=== PATIENT | female | born 1960 | race Caucasian/White ===

== ENCOUNTER 2020-05-29 10:48 | Outpatient (RCR) | payer OTHER, SELFPAY ==
[2020-05-29] MEDS: COVID-19 VACC, MRNA(PFIZER)/PF 30 MCG/0.3 ML SYRINGE IM (12:02)
[2020-06-19] MEDS: COVID-19 VACC, MRNA(PFIZER)/PF 30 MCG/0.3 ML SYRINGE IM (11:57)
== END 2020-08-21 23:59 ==
LOC: IMMUN 10:48
PROVIDERS: PCP Internal Medicine; Visit Provider Family Medicine
DX: Z23 Encounter for immunization (principal)
CPT/HCPCS: 0001A; 0002A; 91300